=== PATIENT | female | born 1975 | race Caucasian/White ===

== ENCOUNTER → 2017-12-20 | Outpatient (CLI) | payer BC | LOC: RAD 14:59 | DX: M25.571 Pain in right ankle and joints of right foot (principal) ==

== ENCOUNTER 2021-03-30 21:05 | Emergency (ER) | payer BC ==
[2021-03-30] MEDS ORDERED: ZYRTEC ALLERGY10 MG PO (21:32)
[2021-03-30] MEDS ORDERED: LISINOPRIL20 MG PO (21:32)
[2021-03-30] MEDS ORDERED: PRILOSEC 20MG20 MG PO (21:32)
[2021-03-30] MEDS ORDERED: VENLAFAXINE HY150 MG PO (21:33)
[2021-03-30 21:51] LABS: BASO # 0.02 (0.02-0.10); EOS # 0.01 (0.04-0.40); EOS % 0.1 % (1.0-5.0); HEMATOCRIT 35.8 % (37.0-47.0); HEMOGLOBIN 11.2 g/dL (12.5-16.0); LYMPH# 1.37 (1.50-4.00); MEAN CELL VOLUME 80 fl (78-100); MEAN CORPUSCULAR HEMOGLOBIN 25 pg (27-31); MEAN CORPUSCULAR HGB CONC 31 g/dL (33-37); MONO # 0.62 (0.20-0.80); PLATELET COUNT 450 K/mm3 (130-400); RED BLOOD COUNT 4.49 M/mm3 (4.10-5.30); RED CELL DISTRIBUTION WIDTH 15.3 % (11.5-14.5); WHITE BLOOD COUNT 16.5 K/mm3 (4.8-10.8)
[2021-03-30 21:54] LABS: CALCIUM 9.8 mg/dL (8.3-10.5)
[2021-03-30 21:56] LABS: TOTAL PROTEIN 7.2 g/dL (6.4-8.3)
[2021-03-30 21:57] LABS: TOTAL BILIRUBIN 0.5 mg/dL (0.2-1.2)
[2021-03-30 22:02] LABS: PH-URINE 5.5 (5.0 - 8.0); URINE APPEARANCE CLOUDY; URINE BILIRUBIN NEGATIVE (NEGATIVE); URINE BLOOD TRACE (NEGATIVE); URINE COLOR YELLOW; URINE GLUCOSE NEGATIVE (NEGATIVE); URINE KETONE 2+ (NEGATIVE); URINE NITRATE NEGATIVE (NEGATIVE); URINE PROTEIN(semi-quant) TRACE mg/dL (NEGATIVE); URINE UROBILINOGEN NORMAL (NORMAL)
[2021-03-30 22:03] LABS: URINE LEUKOCYTE ESTERASE TRACE (NEGATIVE); URINE MUCUS PRESENT (NOT PRESENT)
[2021-03-31 04:55] VITALS: BP 163/99
== END 2021-03-31 04:55 | disposition short-term general hospital (02) ==
LOC: ED 21:05
PROVIDERS: Physician Assistant
DX: K81.0 Acute cholecystitis (principal); I10 Essential (primary) hypertension; F32.9 Major depressive disorder, single episode, unspecified; Z79.899 Other long term (current) drug therapy; Z20.822 Contact with and (suspected) exposure to COVID-19
CPT/HCPCS: J1885; J2270; J2405; J2543; J2550; J3010; J7030; Q9967